=== PATIENT | female | born 1965 | race Caucasian/White ===

== ENCOUNTER 2023-10-29 00:50 | Day surgery (SDC) | payer OTHER ==
[2023-10-29] MEDS ORDERED: Succinylcholine 200 MG/10 ML MDV ONE (06:56)
[2023-10-29] MEDS ORDERED: Dexamethasone 4 MG/ML SDV ONE (06:56)
[2023-10-29] MEDS ORDERED: Neostigmine Methylsulfate 10 MG/10 ML MDV ONE (06:56)
[2023-10-29] MEDS ORDERED: Propofol 200 MG/20 ML SDV ONE (06:56)
[2023-10-29] MEDS ORDERED: Glycopyrrolate 0.2 MG/ML 5 ML MDV ONE (06:56)
[2023-10-29] MEDS ORDERED: Rocuronium 50 MG/5 ML Vial ONE (06:56)
[2023-10-29] MEDS ORDERED: Ondansetron 4 MG/2 ML SDV ONE (06:56)
[2023-10-29] MEDS ORDERED: fentaNYL 250 MCG/5 ML SDV ONE (06:58)
[2023-10-29] MEDS: Indocyanine Green 25 MG SDV INJECT ONE (07:00)
[2023-10-29] MEDS: Sodium Chloride 0.9% 1,000 ML IV SCH (07:03)
[2023-10-29] MEDS: ceFAZolin 2 GM in Premix Bag 1 BAG IV ONE (07:45)
[2023-10-29] MEDS: metroNIDAZOLE/Normal Saline 500 MG in Premix Bag 1 BAG IV ONE (07:55)
[2023-10-29] MEDS ORDERED: fentaNYL 100 MCG/2 ML SDV ONE (08:27)
[2023-10-29] MEDS: Bupivacaine 0.5% 50 ML MDV ONE (08:50)
[2023-10-29] MEDS ORDERED: Naloxone 0.4 MG/ML SDV ONE (09:37)
[2023-10-29] MEDS: Acetaminophen/HYDROcodone 325-5 MG Tab PO ONE (11:44)
[2023-10-29] MEDS: Albuterol/Ipratropium 3.0-0.5 MG/3 ML Neb Soln NEB ONE (11:47)
[2023-10-30] MEDS ORDERED: Albuterol/Ipratropium 3.0-0.5 MG/3 ML Neb Soln NEB ONE (06:00)
== END 2023-10-29 13:30 | disposition home or self-care (01) ==
LOC: JP.SDS 00:50
PROVIDERS: ATTEND Surgery
DX: K81.1 Chronic cholecystitis (principal); D13.5 Benign neoplasm of extrahepatic bile ducts; K73.9 Chronic hepatitis, unspecified; K75.81 Nonalcoholic steatohepatitis (NASH); K82.8 Other specified diseases of gallbladder; I10 Essential (primary) hypertension; E11.9 Type 2 diabetes mellitus without complications; Z79.899 Other long term (current) drug therapy
CPT/HCPCS: 47379; 47562; 82947; 94640; A9270; J0171; J0330; J0665; J0690; J1100; J1836; J2310; J2405; J2704; J2710; J2795; J3010; J3490; J7030; 88304; 88307; 88313; J7620